=== PATIENT | male | born 1980 | race Caucasian/White ===

== ENCOUNTER 2019-03-01 22:35 | Emergency (ER) | payer SELFPAY ==
[2019-03-01] MEDS ORDERED: PRILOSEC OTC20 MG PO (22:54)
[2019-03-02] MEDS ORDERED: CYCLOBENZAPRINE10 M1 PO ×3 (00:50→00:51)
[2019-03-02 00:56] VITALS: BP 131/85
== END 2019-03-02 00:56 | disposition home or self-care (01) ==
LOC: ED 22:35
DX: M54.16 Radiculopathy, lumbar region (principal); K21.9 Gastro-esophageal reflux disease without esophagitis; F17.210 Nicotine dependence, cigarettes, uncomplicated; Z98.890 Other specified postprocedural states
CPT/HCPCS: J1100; J1885